=== PATIENT | female | born 1950 | race Two or more races ===

== ENCOUNTER 2023-02-17 15:50 | Inpatient (IN) | payer OTHER ==
[~2023-02-17] VITALS: Ht 160 cm; Wt 71.2 kg
[2023-02-18] MEDS ORDERED: CARVEDILOL6.25 M1 PO (13:22)
[2023-02-18] MEDS ORDERED: SYNTHROID88 MCG PO (13:22)
[2023-02-18] MEDS ORDERED: ZESTRIL10 M1 PO (13:23)
== END 2023-02-25 18:50 | DRG 470 ==
LOC: O/R 02-23 05:50 → SURH 02-23 05:50
PROVIDERS: ADMIT Orthopaedic Surgery; ATTEND Orthopaedic Surgery
PROC: 0SRC0JZ Replacement of Right Knee Joint with Synthetic Substitute, Open Approach (ICD-10-PCS; principal; 2023-02-23 07:00)
DX: M17.11 Unilateral primary osteoarthritis, right knee (principal); D62 Acute posthemorrhagic anemia; R26.89 Other abnormalities of gait and mobility; M85.862 Other specified disorders of bone density and structure, left lower leg; I10 Essential (primary) hypertension; E03.9 Hypothyroidism, unspecified; E78.00 Pure hypercholesterolemia, unspecified